=== PATIENT | female | born 2000 | race Hispanic/Latino ===

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

== ENCOUNTER 2020-03-14 11:51 | Observation (INO) | payer MEDICAID | END 2020-03-14 13:34 | disposition home or self-care (01) | LOC: EDH 11:51 → LDH 11:52 | PROVIDERS: ADMIT Obstetrics & Gynecology; ATTEND Obstetrics & Gynecology | DX: O36.8130 Decreased fetal movements, third trimester, not applicable or unspecified (principal); Z3A.36 36 weeks gestation of pregnancy | CPT/HCPCS: 59025; 76819; 99284; G0378 ==

== ENCOUNTER 2022-11-03 18:37 | Emergency (ER) | payer MEDICAID ==
[~2022-11-03 18:37] MED LIST: ACET-2079 PO; DOCU-116 PO; IBUP-2077 PO; PREN1TAB80 PO
== END 2022-11-03 19:39 | disposition home or self-care (01) ==
LOC: EDH 18:37
DX: R10.9 Unspecified abdominal pain (principal); Z53.21 Procedure and treatment not carried out due to patient leaving prior to being seen by health care provider